=== PATIENT | male | born 1975 | race Hispanic/Latino ===

== ENCOUNTER 2019-06-26 11:11 | Inpatient (IN) | payer OTHER ==
[2019-06-26] MEDS ORDERED: ASPIRIN PO ONE (11:31)
--- NOTE | 2019-06-26 11:34 | Event Note ---
ED Screening Note Date of service: 06/26/19 Time: 11:30 ED Screening Note: This is a 44 y.o. M. that presents to the ER with chest pain that started today. Current smoker PMH HTN, sleep apnea, and GERD This initial assessment/diagnostic orders/clinical plan/treatment(s) is/are subject to change based on patients health status, clinical progression and re- assessment by fellow clinical providers in the ED. Further treatment and workup at subsequent clinical providers discretion. Patient/guardian urged not to elope from the ED as their condition may be serious if not clinically assessed and managed. Initial orders include: Labs, EKG, and CXR
[2019-06-26 12:23] LABS: Basophils # (Auto) 0.1 K/mm3 (0.0-0.1); Basophils % (Auto) 1.1 % (0.0-1.8); Eosinophils # (Auto) 0.2 K/mm3 (0.0-0.4); Eosinophils % (Auto) 2.8 % (0.0-4.3); Hemoglobin 14.6 gm/dl (11.8-15.2); Lymphocytes # (Auto) 1.9 K/mm3 (1.2-5.4); Lymphocytes % (Auto) 23.7 % (13.4-35.0); Mean Corpuscular HGB Conc 34 % (32-34); Mean Corpuscular Volume 81 fl (84-94); Monocytes # (Auto) 0.4 K/mm3 (0.0-0.8); Monocytes % (Auto) 5.5 % (0.0-7.3); Platelet Count 171 K/mm3 (140-440); Red Blood Count 5.31 M/mm3 (3.65-5.03); Red Cell Distribution Width 15.1 % (13.2-15.2)
--- NOTE | 2019-06-26 13:08 | XRay Report ---
CHEST 1 VIEW 11:46 AM INDICATION / CLINICAL INFORMATION: Chest Pain. COMPARISON: None currently available. FINDINGS: SUPPORT DEVICES: None. HEART / MEDIASTINUM: The heart size is normal for technique. Pulmonary vasculature is normal. The aor ta is normal in caliber. LUNGS / PLEURA: No significant pulmonary or pleural abnormality. No pneumothorax. ADDITIONAL FINDINGS: No significant additional findings. IMPRESSION:No acute abnormality. Signer Name: Hardeep Barker MD Signed: 06/26/2019 1:03 PM Workstation Name: [id number]
[2019-06-26 13:29] LABS: BUN/Creatinine Ratio 11; Blood Urea Nitrogen 9 mg/dL (9-20); Hemolysis Index 18
--- NOTE | 2019-06-26 14:43 | Emergency Department Report ---
HPI - General Chief Complaint: Chest Pain Time Seen by Provider: 06/26/19 11:30 - HPI HPI: Room 4 The patient is a 44-year-old male presenting with chief complaint of chest pain. Patient states today at work he developed sudden onset of stabbing substernal chest pain without radiation. Patient states he notices heart rate and increased to 115 bpm. Patient states he sat down and his symptoms began to improve. Patient still admits to intermittent pleurisy. Patient states she's had an occasional cough but has been nonproductive. Patient denies any recent flights or long car trips. Patient denies history of fever. The patient states yesterday he had a few episodes of nausea and vomiting but denied chest pain at that time. Location: [See above] Duration: [See above] Quality: [See above] Severity: [See above] Modifying factors: [see above] Context: [see above] Mode of transportation: [not driving] ED Past Medical Hx - Past Medical History Previous Medical History?: Yes Hx Hypertension: Yes Additional medical history: neurofibromitosis type I, morbid obesity, sleep apnea with CPAP - Surgical History Past Surgical History?: No - Family History Family history: no significant - Social History Smoking Status: Current Every Day Smoker (2/3 pack per day) Substance Use Type: None (denies illicit drug use) - Medications Home Medications: Home Medications Medication Instructions Recorded Confirmed Last Taken Type Aspirin 325 mg PO QDAY 06/23/14 06/23/14 06/23/14 08:00 History Azithromycin [Zithromax Z-VALERY] 250 mg PO DAILY #6 tablet 06/23/14 Unknown Rx Beclomethasone Dipropionat(Nf) 1 inhalation IH BID #1 aer.w.adap 06/23/14 Unknown Rx [Qvar 40MCG] Calcium Carbonate/Vitamin D3 06/23/14 06/23/14 Unknown History [Centrum Pro Nutrients Tablet] Famotidine [Pepcid] 20 mg PO BID #30 tablet 06/23/14 Unknown Rx ED Review of Systems ROS: Stated complaint: CHEST PAIN Other details as noted in HPI Constitutional: denies: diaphoresis, fever Eyes: denies: eye pain ENT: denies: throat pain Respiratory: other (pleurisy) Cardiovascular: chest pain Endocrine: no symptoms reported Gastrointestinal: denies: abdominal pain Genitourinary: denies: dysuria Neurological: denies: headache Physical Exam - Physical Exam Vital Signs: Vital Signs 06/26/19 06/26/19 06/26/19 11:30 13:11 14:21 Temperature 98.4 F Pulse Rate 92 H 84 Respiratory 20 20 20 Rate Blood Pressure 156/105 Blood Pressure 132/96 [Left] O2 Sat by Pulse 99 95 Oximetry Physical Exam: GENERAL: The patient is well-developed well-nourished obese male sitting on stretcher not appearing to be in acute distress. [] HEENT: Normocephalic. Atraumatic. Extraocular motions are intact. Patient has moist mucous membranes. NECK: Supple. Trachea midline CHEST/LUNGS: Clear to auscultation. There is no respiratory distress noted. HEART/CARDIOVASCULAR: Regular. There is no tachycardia. There is no gallop rub or murmur. ABDOMEN: Abdomen is soft, nontender. Patient has normal bowel sounds. There is no abdominal distention. SKIN: There is no rash. There is no edema. There is no diaphoresis. NEURO: The patient is awake, alert, and oriented. The patient is cooperative. The patient has normal speech MUSCULOSKELETAL: There is no evidence of acute injury. ED Course Vital Signs 06/26/19 06/26/19 06/26/19 11:30 13:11 14:21 Temperature 98.4 F Pulse Rate 92 H 84 Respiratory 20 20 20 Rate Blood Pressure 156/105 Blood Pressure 132/96 [Left] O2 Sat by Pulse 99 95 Oximetry ED Medical Decision Making - Lab Data Result diagrams: 06/26/19 12:00 06/26/19 12:00 Laboratory Tests 06/26/19 06/26/19 06/26/19 12:00 12:00 14:16 WBC 7.9 RBC 5.31 H Hgb 14.6 Hct 43.0 MCV 81 L MCH 28 MCHC 34 RDW 15.1 Plt Count 171 Lymph % (Auto) 23.7 Robeson % (Auto) 5.5 Eos % (Auto) 2.8 Baso % (Auto) 1.1 Lymph # 1.9 Robeson # 0.4 Eos # 0.2 Baso # 0.1 Seg Neutrophils % 66.9 Seg Neutrophils # 5.3 D-Dimer Sodium 138 Potassium 4.6 Chloride 100.3 Carbon Dioxide 26 Anion Gap 16 BUN 9 Creatinine 0.8 Estimated GFR > 60 BUN/Creatinine Ratio 11 Glucose 201 H Calcium 9.0 Troponin T < 0.010 < 0.010 06/26/19 14:16 WBC RBC Hgb Hct MCV MCH MCHC RDW Plt Count Lymph % (Auto) Robeson % (Auto) Eos % (Auto) Baso % (Auto) Lymph # Robeson # Eos # Baso # Seg Neutrophils % Seg Neutrophils # D-Dimer 183.31 Sodium Potassium Chloride Carbon Dioxide Anion Gap BUN Creatinine Estimated GFR BUN/Creatinine Ratio Glucose Calcium Troponin T - EKG Data -: EKG Interpreted by Me EKG shows normal: sinus rhythm Rate: normal - EKG Data When compared to previous EKG there are: previous EKG unavailable Interpretation: other (no ischemic changes seen) - Radiology Data Radiology results: report reviewed (chest x-ray), image reviewed (chest x-ray) interpreted by me: Chest x-ray-no focal infiltrates, no pneumothorax [facility] [address] [place] [address] XRay Report Signed Patient: JOURDAN ROWLAND JR MR#: [id number] : [id number] Acct:[id number] Age/Sex: 44 / M ADM Date: 06/26/19 Loc: ED Attending Dr: Ordering Physician: ADELINE GRANADOS Date of Service: 06/26/19 Procedure(s): XR chest 1V ap Accession Number(s): [id number] cc: ADELINE GRANADOS Fluoro Time In Minutes: CHEST 1 VIEW 11:46 AM INDICATION / CLINICAL I NFORMATION: Chest Pain. COMPARISON: None currently available. FINDINGS: SUPPORT DEVICES: None. HEART / MEDIASTINUM: The heart size is normal for technique. Pulmonary vasculature is normal. The aorta is normal in caliber. LUNGS / PLEURA: No significant pulmonary or pleural abnormality. No pneumothorax. ADDITIONAL FINDINGS: No significant additional findings. IMPRESSION:No acute abnormality. Signer Name: Hardeep Barker MD Signed: 06/26/2019 1:03 PM Workstation Name: [id number] Transcribed By: RT Dictated By: Hardeep Barker MD Electronically Authenticated By: Hardeep Barker MD Signed Date/Time: 06/26/19 1303 DD/ 1300 TD/TT: - Differential Diagnosis ACS, PE, pericarditis, GERD Critical care attestation.: If time is entered above; I have spent that time in minutes in the direct care of this critically ill patient, excluding procedure time. ED Disposition Clinical Impression: Chest pain Disposition: OP ADMIT IP TO THIS HOSP Is pt being admited?: Yes Does the pt Need Aspirin: Yes Condition: Fair Instructions: Chest Pain (ED) Referrals: REBA GALVIN MD [Primary Care Provider] - 3-5 Days Time of Disposition: 14:57 (hospitalist paged (Dr Tan))
[2019-06-26] MEDS ORDERED: SODIUM CHLORIDE FLUSH SYRINGE 10 ML IV PRN (23:23)
[2019-06-26] MEDS ORDERED: DILAUDID IV PRN (23:23)
[2019-06-26] MEDS ORDERED: TYLENOL PO PRN (23:23)
[2019-06-26] MEDS ORDERED: PERCOCET 5/325 PO PRN (23:23)
[2019-06-26] MEDS ORDERED: ZOFRAN IV PRN (23:23)
--- NOTE | 2019-06-27 00:15 | Event Note ---
Date: 06/26/19 See H/p in reports Chest pain R/o RI Morbid obesity ARMANDO
--- NOTE | 2019-06-27 00:49 | History and Physical Report ---
CHIEF COMPLAINT: Chest pain since morning. HISTORY OF PRESENT ILLNESS: A 44-year-old obese male with history of morbid obesity, sleep apnea, with CPAP, comes in for chest pain, which he developed while working. Substernal chest pain without radiation. The patient also noted that his heart rate was faster. Some palpitations present. The patient sat down and his symptoms improved. No radiation. Some diaphoresis present. Some palpitations. No shortness of breath. No exacerbating or relieving factors. No previous stress test or cardiac catheterization. The patient is morbidly obese. He has also reflux symptoms. PAST MEDICAL HISTORY: As mentioned, hypertension, neurofibromatosis, morbid obesity, sleep apnea, on CPAP machine. PAST SURGICAL HISTORY: None. FAMILY HISTORY: Hypertension. SOCIAL HISTORY: Smokes about two-thirds pack every day. No drugs or alcohol. CURRENT MEDICATIONS: Famotidine 20 mg twice a day and QVAR inhaler and calcium carbonate. REVIEW OF SYSTEMS: Significant for retrosternal and left-sided chest pain. Nonradiating. Associated with diaphoresis and some palpitations. Otherwise, 14-point review of systems negative. PHYSICAL EXAMINATION: GENERAL: Middle-aged male, obese, weighing around 400 pounds. VITAL SIGNS: Temperature is 97.6, pulse is 84, respirations 20, sats are 95%, blood pressure 132/96. HEENT: Unremarkable. Pupils equal and reactive. NECK: Supple, no lymphadenopathy, no thyromegaly. LUNGS: Clear to auscultation and percussion. Good air entry. CARDIOVASCULAR: S1, S2 heard. No gallop, no murmur, no rub. Apical impulse in left fifth intercostal space in midclavicular line. ABDOMEN: Soft and benign. No hepatosplenomegaly. No guarding, no rigidity. Hernial orifices are normal. EXTREMITIES: Good pedal pulses. No pedal edema. CENTRAL NERVOUS SYSTEM: Alert and oriented x 4, nonfocal exam. SKIN: Normal. LABORATORY DATA: Significant for white count of 7900, H and H are 14.6 and 43.0. Platelet count is 171,000. Electrolytes are normal. Glucose is 201. EKG shows normal sinus rhythm, heart rate of 80 per minute and no acute ST-T wave changes. Chest x-ray, no focal infiltrates. No acute changes. ASSESSMENT AND PLAN: 1. Chest pain, rule out myocardial infarction, chest pain protocol. Serial cardiac enzymes and Lexiscan in the morning. The question is whether he fits onto the Lexiscan table. The patient weighs about 400 pounds. Gastroesophageal reflux disease is in the differential diagnosis. 2. Hypertension. Continue antihypertensives. 3. Sleep apnea. Continue CPAP machine. 4. Deep venous thrombosis prophylaxis, Lovenox 40 mg subcutaneous daily. 5. Nicotine dependence, smoking cessation counseled. Nicoderm patch initiated. JOB# [id number] VSM/NTS
[2019-06-27] MEDS ORDERED: LEXISCAN IV ONE ×2 (09:21→09:22)
[2019-06-27] MEDS ORDERED: PEPCID PO SCH (10:00)
[2019-06-27] MEDS ORDERED: HABITROL TD SCH (10:00)
[2019-06-27] MEDS ORDERED: SODIUM CHLORIDE FLUSH SYRINGE 10 ML IV SCH (10:00)
[2019-06-27 13:07] VITALS: BP 132/87
--- NOTE | 2019-06-27 15:14 | Discharge Summary ---
Providers - Providers Date of Admission: 06/26/19 15:03 Date of discharge: 06/27/19 Attending physician: PADMA HULL Primary care physician: REBA GALVIN Hospitalization Condition: Fair Disposition: DC-01 TO HOME OR SELFCARE Exam - Constitutional Vitals: Temp Pulse Resp BP Pulse Ox 98.0 F 85 16 132/87 92 06/27/19 12:32 06/27/19 12:32 06/27/19 12:32 06/27/19 12:32 06/27/19 12:32 Plan Activity: advance as tolerated Diet: low fat, low cholesterol, low salt, diabetic Care Plan Goals: Control of blood glucose Plan of Treatment: 1.Follow up with PCP or [facility] in 1 week. 2.Measure fingerstick glucose 2 times daily and show readings to Doctor. Health Concerns: Blood glucose management. He is refusing medications. Assessment: 1.Chest pain, non-cardiac due to GERD 2.Diabetes mellitus type 2 Follow up with: REBA GALVIN MD [Primary Care Provider] - 3-5 Days Prescriptions: metFORMIN [Glucophage] 500 mg PO BID #60 tablet Famotidine [Pepcid] 20 mg PO BID #30 tablet
--- NOTE | 2019-06-28 02:59 | Treadmill Report ---
NUCLEAR CARDIAC IMAGING REPORT INDICATIONS FOR PROCEDURE: Chest pain. Informed consent was obtained. Vasodilator stress was performed following the intravenous administration of 0.4 mg of Lexiscan per protocol. Rest and stress nuclear cardiac imaging was performed following the intravenous administration of technetium-99m Myoview per protocol. Gated SPECT imaging demonstrates a post-stress left ventricular ejection fraction of 58% with normal wall motion. Myocardial perfusion imaging demonstrates no significant cavity change between stress and rest. No significant stress induced reversible perfusion defects are seen. There is a small moderately intense persistent inferior perfusion abnormality, which in the setting of normal wall motion is likely artifactual in origin. Nuclear cardiac imaging demonstrates grossly normal post-stress left ventricular systolic function. There is no evidence for significant myocardial ischemia. Although, an area of prior inferior wall myocardial necrosis cannot be definitely excluded, the imaging characteristics of the perfusion abnormality suggest that it is artifactual in origin. [facility]# [id number] CHAU/BRITTANY HICKMAN
== END 2019-06-27 16:03 | disposition home or self-care (01) | DRG 392 ==
LOC: ED 11:11 → 4A 15:03
PROVIDERS: ADMIT Internal Medicine; ATTEND Internal Medicine
DX: K21.9 Gastro-esophageal reflux disease without esophagitis (principal); Z68.43 Body mass index [BMI] 50.0-59.9, adult; I10 Essential (primary) hypertension; G47.30 Sleep apnea, unspecified; G47.33 Obstructive sleep apnea (adult) (pediatric); E66.01 Morbid (severe) obesity due to excess calories; F17.210 Nicotine dependence, cigarettes, uncomplicated; Z79.82 Long term (current) use of aspirin; Z79.899 Other long term (current) drug therapy; Z79.84 Long term (current) use of oral hypoglycemic drugs; Z82.49 Family history of ischemic heart disease and other diseases of the circulatory system; Z71.6 Tobacco abuse counseling
CPT/HCPCS: 36415; 71045; 78452; 80048; 83036; 84484; 85025; 85379; 93005; 93010; 93017; 96374; 99406; G0378; A9502; J2785